=== PATIENT | male | born 1960 | race African-American/Black ===

== ENCOUNTER 2016-05-20 14:35 | Inpatient (IN) | payer OTHER ==
[2016-05-20 17:38] VITALS: BMI 17.1
--- NOTE | 2016-05-20 18:00 | HP ---
COWS - Scale Resting Pulse: 1= [place] 81-100 Sweatin= Chills/Flushing Restless Observation: 1= Difficult to Sit Still Pupil Size: 0= Normal to Room Light Bone or Joint Aches: 2= Severe Diffuse Aches Runny Nose/ Eye Tearin= Runny Nose/Eyes GI Upset > 30mins: 2= Nausea/Diarrhea Tremor Observation: 2= Slight Tremor Visible Yawning Observation: 0= None Anxiety or Irritability: 2=Irritable/Anxious Goose Flesh Skin: 3=Piloerection COWS Score: 16 CIWA Score - CIWA Score Nausea/Vomitin-Mild Nausea/No Vomiting Muscle Tremors: 4-Moderate,w/Arms Extend Anxiety: 4-Mod. Anxious/Guarded Agitation: 4-Moderately Restless Paroxysmal Sweats: 1-Minimal Palms Moist Orientation: 1-Uncertain about Date Tacttile Disturbances: 0-None Auditory Disturbances: 0-None Visual Disturbances: 0-None Headache: 0-None Present CIWA-Ar Total Score: 15 Admission [facility] - HPI Chief Complaint: WITHDRAWAL SX Allergies/Adverse Reactions: Allergies Allergy/AdvReac Type Severity Reaction Status Date / Time No Known Allergies Allergy Verified 02/08/16 16:53 History of Present Illness: 56 YEARS OLD MALE WITH LONG HISTORY OF ALCOHOL BENZO OPIATE NICOTINE DEPENDENCE , DENIES MEDICAL DENIES MENTAL ILLNESS IS ADMITTED TO DETOX Exam Limitations: No Limitations - Ebola screening Have you traveled outside of the country in the last 21 days: No Have you had contact with anyone from an Ebola affected area: No Have you been sick,other than usual withdrawal symptoms: No Do you have a fever: No - Review of Systems Constitutional: Chills, Loss of Appetite, Changes in sleep, Unexplained wgt Loss EENT: reports: Other (EYE GLASSES) Respiratory: reports: SOB at Rest Cardiac: reports: No Symptoms Reported GI: reports: Diarrhea, Nausea, Poor Appetite, Poor Fluid Intake, Abdominal cramping : reports: No Symptoms Reported Musculoskeletal: reports: Back Pain, Joint Pain, Muscle Pain, Neck Pain Integumentary: reports: No Symptoms Reported Neuro: reports: Tremors Endocrine: reports: No Symptoms Reported Hematology: reports: No Symptoms Reported Psychiatric: reports: Judgement Intact, Mood/Affect Appropiate Other Systems: Reviewed and Negative Patient History - Patient Medical History Hx Anemia: No Hx Asthma: No Hx Chronic Obstructive Pulmonary Disease (COPD): No Hx Cancer: No Hx Cardiac Disorders: No Hx Congestive Heart Failure: No Hx Hypertension: No Hx Hypercholesterolemia: No Hx Pacemaker: No HX Cerebrovascular Accident: No Hx Seizures: No Hx Dementia: No Hx Diabetes: No Hx Gastrointestinal Disorders: No Hx Liver Disease: No Hx Genitourinary Disorders: No Hx Sexually Transmitted Disorders: No Hx Renal Disease (ESRD): No Hx Thyroid Disease: No Hx Human Immunodeficiency Virus (HIV): No Hx Hepatitis C: No Hx Depression: No Hx Suicide Attempt: No Hx Bipolar Disorder: No Hx Schizophrenia: No - Patient Surgical History Past Surgical History: No Hx Neurologic Surgery: No Hx Cataract Extraction: No Hx Cardiac Surgery: No Hx Lung Surgery: No Hx Breast Surgery: No Hx Breast Biopsy: No Hx Abdominal Surgery: No Hx Appendectomy: No Hx Cholecystectomy: No Hx Genitourinary Surgery: No Hx Orthopedic Surgery: No - PPD History Previous Implant?: Yes Documented Results: Negative w/proof Implanted On Prior R Admission?: Yes Date: 12/24/15 Results: 0 mm PPD to be Administered?: No - Smoking Cessation Smoking history: Current every day smoker Have you smoked in the past 12 months: Yes Aproximately how many cigarettes per day: 10 Cigars Per Day: 0 Hx Chewing Tobacco Use: No Initiated information on smoking cessation: Yes 'Breaking Loose' booklet given: 05/20/16 - Substance & Tx. History Hx Alcohol Use: Yes Hx Substance Use: Yes Substance Use Type: Alcohol, Heroin, Opiates, Tranquilizers - Substances Abused Alcohol Route: Oral Frequency: Daily Amount used: 1/2 [place] Age of first use: 19 Date of Last Use: 05/19/16 Heroin Route: Inhalation Frequency: Daily Amount used: 15 BAGS Age of first use: 29 Date of Last Use: 05/20/16 Benzodiazepine (Klonopin) Route: Oral Frequency: Daily Amount used: 8 MG Age of first use: 54 Date of Last Use: 05/20/16 Family Disease History - Family Disease History Family Disease History: Heart Disease: Mother Admission Physical Exam [facility] - Vital Signs Vital Signs: Vital Signs - 24 hr 05/20/16 17:36 Temperature 96.5 F L Pulse Rate 81 Respiratory 20 Rate Blood Pressure 114/90 - Physical General Appearance: Yes: Appropriately Dressed, Mild Distress, Thin, Tremorous, Irritable, Sweating, Anxious HEENTM: Yes: Hearing grossly Normal, Normal ENT Inspection, Normocephalic, Normal Voice Respiratory: Yes: Chest Non-Tender, Lungs Clear, Normal Breath Sounds, No Respiratory Distress, No Accessory Muscle Use Neck: Yes: Supple, Trachea in good position Breast: Yes: Breasts Symetrical Cardiology: Yes: Regular Rhythm, Regular Rate, S1, S2 Abdominal: Yes: Non Tender, Soft Genitourinary: Yes: Within Normal Limits Back: Yes: Normal Inspection Musculoskeletal: Yes: full range of Motion, Gait Steady Extremities: Yes: Within Normal Limits Neurological: Yes: Alert, Motor Strength 5/5, Normal Mood/Affect, Normal Response Integumentary: Yes: Within Normal Limits Lymphatic: Yes: Within Normal Limits - Diagnostic (1) Alcohol dependence with uncomplicated withdrawal Current Visit: Yes Status: Acute (2) Opioid dependence with withdrawal Current Visit: Yes Status: Acute (3) Sedative, hypnotic or anxiolytic dependence with withdrawal, uncomplicated Current Visit: Yes Status: Acute (4) Nicotine dependence Current Visit: Yes Status: Acute Qualifiers: Nicotine product type: cigarettes Substance use status: in withdrawal Qualified Code(s): F17.213 - Nicotine dependence, cigarettes, with withdrawal (5) Weight loss Current Visit: Yes Status: Acute (6) GERD (gastroesophageal reflux disease) Current Visit: Yes Status: Acute Qualifiers: Esophagitis presence: without esophagitis Qualified Code(s): K21.9 - Gastro-esophageal reflux disease without esophagitis Cleared for Admission S - Detox or Rehab [facility] Level of Care: Medically Managed Detox Regimen/Protocol: Methadone/Valium S Breath Alcohol Content Breath Alcohol Content: 0 Urine Drug Screen - Results Drug Screen Negative: No Urine Drug Screen Results: THC-Marijuana, OPI-Opiates, AMP-Amphetamines, MET- Methamphetamine, BZO-Benzodiazepines, OXY-Oxycodone
[2016-05-20] MEDS ORDERED: MAG HYDROX/AL HYDROX/SIMETH 30 ML UNIT-DOSE CUP PO PRN (18:10)
[2016-05-20] MEDS ORDERED: METHADONE HCL 10 MG TABLET (FOR DETOX USE ONLY) PO ONE ×2 (18:10→23:00)
[2016-05-20] MEDS ORDERED: MENTHOL/PHENOL 1 EACH UD MM PRN (18:10)
[2016-05-20] MEDS ORDERED: diazePAM 5 MG TABLET PO ONE (18:10)
[2016-05-20] MEDS ORDERED: ACETAMINOPHEN 325 MG TABLET (FP) PO PRN (18:10)
[2016-05-20] MEDS ORDERED: LOPERAMIDE HCL 2 MG CAPSULE PO PRN (18:10)
[2016-05-20] MEDS ORDERED: MAGNESIUM CITRATE 300 ML BOTTLE PO PRN (18:10)
[2016-05-20] MEDS ORDERED: guaiFENesin/D-METHORPHAN HB 10 ML UNIT-DOSE CUPS PO PRN (18:10)
[2016-05-20] MEDS ORDERED: MAGNESIUM HYDROX 2400MG/30ML ORAL SUSPENSION 30 ML CUP PO PRN (18:10)
[2016-05-20] MEDS ORDERED: NICOTINE POLACRILEX 2 MG GUM BUC PRN (18:10)
[2016-05-20] MEDS ORDERED: P-EPHED 60MG/TRIPROLIDI 2.5MG TABLET PO PRN (18:10)
[2016-05-20] MEDS ORDERED: IBUPROFEN 400 MG TABLET (FP) PO PRN (18:10)
[2016-05-20] MEDS ORDERED: METHADONE HCL 10 MG TABLET (FOR DETOX USE ONLY) ONE (21:01)
[2016-05-20] MEDS: RANITIDINE HCL 150 MG TABLET (FP) PO SCH (21:06)
[2016-05-20] MEDS: THIAMINE HCL 100 MG TABLET (FP) PO SCH (21:06)
[2016-05-20] MEDS: diazePAM 5 MG TABLET PO SCH (22:45)
[2016-05-20 23:03] LABS: URINE APPEARANCE CLEAR; URINE BILIRUBIN NEGATIVE (NEGATIVE); URINE BLOOD NEGATIVE (NEGATIVE); URINE COLOR YELLOW; URINE GLUCOSE (UA) NEGATIVE (NEGATIVE); URINE KETONE TRACE (NEGATIVE); URINE LEUK ESTERASE NEGATIVE (NEGATIVE); URINE NITRITE NEGATIVE (NEGATIVE); URINE PROTEIN NEGATIVE (NEGATIVE); URINE UROBILINOGEN NEGATIVE E.U./dl (0.2-1.0)
[2016-05-21] MEDS: diazePAM 5 MG TABLET PO SCH ×3 (06:00→22:13)
[2016-05-21] MEDS ORDERED: METHADONE HCL 10 MG TABLET (FOR DETOX USE ONLY) PO SCH (10:00)
[2016-05-21] MEDS: PRENATAL VITAMINS W/ FOLIC ACID TABLET (FP) PO SCH (10:08)
[2016-05-21] MEDS: RANITIDINE HCL 150 MG TABLET (FP) PO SCH ×2 (10:08→22:13)
[2016-05-21] MEDS: NICOTINE 14 MG/24 HOURS TOPICAL PATCH TD SCH (10:09)
[2016-05-21 10:53] LABS: MCH 26.3 pg (25.7-33.7); MCHC 32.8 g/dl (32.0-35.9); MEAN CELL VOLUME 80.3 fl (80-96); MEAN PLT VOLUME 8.7 fl (7.5-11.1); PLATELET COUNT 169 K/MM3 (134-434); RDW 14.2 % (11.9-15.9); WHITE BLOOD COUNT 5.9 K/mm3 (4.0-10.0)
[2016-05-21 11:14] LABS: ALBUMIN 3.3 g/dl (3.4-5.0); ALK PHOS 103 U/L (45-117); ANION GAP 10 (8-16); BILIRUBIN,TOTAL 0.4 mg/dL (0.2-1.0); CALCIUM 8.3 mg/dL (8.5-10.1); CO2 27 mmol/L (21-32); CREATININE 0.9 mg/dL (0.7-1.3); GLUCOSE,RANDOM 84 mg/dL (74-106); SGOT/AST 21 U/L (15-37); SGPT/ALT 18 U/L (12-78); TOT PROT 6.3 g/dl (6.4-8.2)
--- NOTE | 2016-05-21 11:19 | PN ---
S CIWA - CIWA Score Nausea/Vomitin Muscle Tremors: 4-Moderate,w/Arms Extend Anxiety: 4-Mod. Anxious/Guarded Agitation: 4-Moderately Restless Paroxysmal Sweats: 3 Orientation: 0-Oriented Tacttile Disturbances: 1-Very Mild Itch/Numbness Auditory Disturbances: 0-None Visual Disturbances: 0-None Headache: 0-None Present CIWA-Ar Total Score: 19 BHS COWS - Scale Resting Pulse: 1= [place] 81-100 Sweatin= Chills/Flushing Restless Observation: 1= Difficult to Sit Still Pupil Size: 1= Pupils >than Normal Bone or Joint Aches: 1= Mild Discomfort Runny Nose/ Eye Tearin= Nasal Congestion GI Upset > 30mins: 2= Nausea/Diarrhea Tremor Observation of Outstretched Hands: 2= Slight Tremor Visible Yawning Observation: 1= 1-2x During Session Anxiety or Irritability: 2=Irritable/Anxious Goose Flesh Skin: 3=Piloerection COWS Score: 16 S Progress Note (SOAP) Subjective: nasuea, sweats, interrupted sleep , anxiety, tremors Objective: 05/21/16 11:19 Laboratory Tests 05/20/16 05/21/16 05/21/16 22:01 08:00 09:30 WBC 5.9 RBC 4.84 Hgb 12.8 Hct 38.9 MCV 80.3 MCHC 32.8 RDW 14.2 Plt Count 169 MPV 8.7 Sodium 140 Potassium 3.9 Chloride 103 Urine Color Yellow Urine Appearance Clear Urine pH 5.0 D Ur Specific [place] 1.026 Urine Protein Negative Urine Glucose (UA) Negative Urine Ketones Trace H Urine Blood Negative Urine Nitrite Negative Urine Bilirubin Negative Urine Urobilinogen Negative Ur Leukocyte Esterase Negative labs still pending Assessment: 05/21/16 11:19 withdrawal sx Plan: cont detox
[2016-05-21] MEDS: diazePAM 5 MG TABLET PO PRN (17:21)
--- NOTE | 2016-05-21 18:37 | EKG ---
Test Reason : Blood Pressure : / mmHG Vent. Rate : 062 BPM Atrial Rate : 062 BPM P-R Int : 176 ms QRS Dur : 124 ms QT Int : 416 ms P-R-T Axes : 074 066 054 degrees QTc Int : 422 ms NORMAL SINUS RHYTHM POSSIBLE LEFT ATRIAL ENLARGEMENT LEFT VENTRICULAR HYPERTROPHY WITH QRS WIDENING ABNORMAL ECG NO PREVIOUS ECGS AVAILABLE Confirmed by MATEUSZ ALBRIGHT MD ([id number]) on 05/21/2016 6:37:11 PM Referred By: Confirmed By:MATEUSZ ALBRIGHT MD
[2016-05-21] MEDS: THIAMINE HCL 100 MG TABLET (FP) PO SCH (22:13)
[2016-05-21] MEDS: diphenhydrAMINE HCL 50 MG CAPSULE PO PRN (22:14)
[2016-05-22] MEDS: NICOTINE 14 MG/24 HOURS TOPICAL PATCH TD SCH (10:07)
[2016-05-22] MEDS: RANITIDINE HCL 150 MG TABLET (FP) PO SCH ×2 (10:07→22:05)
[2016-05-22] MEDS: PRENATAL VITAMINS W/ FOLIC ACID TABLET (FP) PO SCH (10:07)
[2016-05-22] MEDS: diazePAM 5 MG TABLET PO SCH ×2 (10:07→22:05)
[2016-05-22] MEDS: METHADONE HCL 5 MG TABLET (FOR DETOX USE ONLY) PO SCH (10:07)
--- NOTE | 2016-05-22 12:52 | PN ---
[facility] CIWA - CIWA Score Nausea/Vomitin Muscle Tremors: 3 Anxiety: 4-Mod. Anxious/Guarded Agitation: 4-Moderately Restless Paroxysmal Sweats: No Perspiration Orientation: 0-Oriented Tacttile Disturbances: 1-Very Mild Itch/Numbness Auditory Disturbances: 0-None Visual Disturbances: 0-None Headache: 2-Mild CIWA-Ar Total Score: 17 BHS COWS - Scale Resting Pulse: 0= [place] 80 or Below Sweatin= Chills/Flushing Restless Observation: 3= Extraneous Movement Pupil Size: 0= Normal to Room Light Bone or Joint Aches: 1= Mild Discomfort Runny Nose/ Eye Tearin= Runny Nose/Eyes GI Upset > 30mins: 2= Nausea/Diarrhea Tremor Observation of Outstretched Hands: 2= Slight Tremor Visible Yawning Observation: 0= None Anxiety or Irritability: 2=Irritable/Anxious Goose Flesh Skin: 0=Smooth Skin COWS Score: 13 S Progress Note (SOAP) Subjective: Tremor, sweating, nausea, restless, interrupted sleep Objective: 05/22/16 12:50 Last Vital Signs Temp Pulse Resp BP Pulse Ox 95.5 F L 60 18 127/91 05/22/16 09:24 05/22/16 09:24 05/22/16 09:24 05/22/16 09:24 Laboratory Tests 05/20/16 05/21/16 05/21/16 22:01 08:00 08:00 WBC RBC Hgb Hct MCV MCHC RDW Plt Count MPV Sodium 140 Potassium 3.9 Chloride 103 Carbon Dioxide 27 Anion Gap 10 BUN 12 Creatinine 0.9 Creat Clearance w eGFR > 60 Random Glucose 84 D Calcium 8.3 L Total Bilirubin 0.4 D AST 21 D ALT 18 Alkaline Phosphatase 103 Total Protein 6.3 L Albumin 3.3 L Urine Color Yellow Urine Appearance Clear Urine pH 5.0 D Ur Specific [place] 1.026 Urine Protein Negative Urine Glucose (UA) Negative Urine Ketones Trace H Urine Blood Negative Urine Nitrite Negative Urine Bilirubin Negative Urine Urobilinogen Negative Ur Leukocyte Esterase Negative RPR Titer Nonreactive 05/21/16 09:30 WBC 5.9 RBC 4.84 Hgb 12.8 Hct 38.9 MCV 80.3 MCHC 32.8 RDW 14.2 Plt Count 169 MPV 8.7 Sodium Potassium Chloride Carbon Dioxide Anion Gap BUN Creatinine Creat Clearance w eGFR Random Glucose Calcium Total Bilirubin AST ALT Alkaline Phosphatase Total Protein Albumin Urine Color Urine Appearance Urine pH Ur Specific [place] Urine Protein Urine Glucose (UA) Urine Ketones Urine Blood Urine Nitrite Urine Bilirubin Urine Urobilinogen Ur Leukocyte Esterase RPR Titer Labs noted Assessment: 05/22/16 12:51 Withdrawal symptoms Plan: Continue detox Ambien 10mg PO qhs prn ordered for sleep (patient stated benadryl doesn't work)
[2016-05-22] MEDS: diazePAM 5 MG TABLET PO PRN (17:12)
[2016-05-22] MEDS: diphenhydrAMINE HCL 50 MG CAPSULE PO PRN (22:04)
[2016-05-22] MEDS: THIAMINE HCL 100 MG TABLET (FP) PO SCH (22:05)
[2016-05-23] MEDS: METHADONE HCL 5 MG TABLET (FOR DETOX USE ONLY) PO SCH (10:04)
[2016-05-23] MEDS: diazePAM 5 MG TABLET PO SCH ×2 (10:04→22:05)
[2016-05-23] MEDS: PRENATAL VITAMINS W/ FOLIC ACID TABLET (FP) PO SCH (10:04)
[2016-05-23] MEDS: NICOTINE 14 MG/24 HOURS TOPICAL PATCH TD SCH (10:04)
[2016-05-23] MEDS: RANITIDINE HCL 150 MG TABLET (FP) PO SCH ×2 (12:11→22:06)
[2016-05-23] MEDS: diazePAM 5 MG TABLET PO PRN (12:14)
--- NOTE | 2016-05-23 12:48 | PN ---
S Progress Note (SOAP) Subjective: Tremors, Interrupted sleep, Lower Back Pain. Objective: PT. A & O X 3. 05/23/16 12:46 Vital Signs Temperature 96.7 F L 05/23/16 10:01 Pulse Rate 53 L 05/23/16 10:01 Respiratory Rate 18 05/23/16 10:01 Blood Pressure 126/90 05/23/16 10:01 O2 Sat by Pulse Oximetry (%) Laboratory Last Values WBC 5.9 K/mm3 (4.0-10.0) 05/21/16 09:30 RBC 4.84 M/mm3 (4.00-5.60) 05/21/16 09:30 Hgb 12.8 GM/dL (11.7-16.9) 05/21/16 09:30 Hct 38.9 % (35.4-49) 05/21/16 09:30 MCV 80.3 fl (80-96) 05/21/16 09:30 MCHC 32.8 g/dl (32.0-35.9) 05/21/16 09:30 RDW 14.2 % (11.9-15.9) 05/21/16 09:30 Plt Count 169 K/MM3 (134-434) 05/21/16 09:30 MPV 8.7 fl (7.5-11.1) 05/21/16 09:30 Sodium 140 mmol/L (136-145) 05/21/16 08:00 Potassium 3.9 mmol/L (3.5-5.1) 05/21/16 08:00 Chloride 103 mmol/L (98-107) 05/21/16 08:00 Carbon Dioxide 27 mmol/L (21-32) 05/21/16 08:00 Anion Gap 10 (8-16) 05/21/16 08:00 BUN 12 mg/dL (7-18) 05/21/16 08:00 Creatinine 0.9 mg/dL (0.7-1.3) 05/21/16 08:00 Creat Clearance w eGFR > 60 (>60) 05/21/16 08:00 Random Glucose 84 mg/dL (74-106) D 05/21/16 08:00 Calcium 8.3 mg/dL (8.5-10.1) L 05/21/16 08:00 Total Bilirubin 0.4 mg/dL (0.2-1.0) D 05/21/16 08:00 AST 21 U/L (15-37) D 05/21/16 08:00 ALT 18 U/L (12-78) 05/21/16 08:00 Alkaline Phosphatase 103 U/L (45-117) 05/21/16 08:00 Total Protein 6.3 g/dl (6.4-8.2) L 05/21/16 08:00 Albumin 3.3 g/dl (3.4-5.0) L 05/21/16 08:00 Urine Color Yellow 05/20/16 22:01 Urine Appearance Clear 05/20/16 22:01 Urine pH 5.0 (5.0-8.0) D 05/20/16 22:01 Ur Specific [place] 1.026 (1.001-1.035) 05/20/16 22:01 Urine Protein Negative (NEGATIVE) 05/20/16 22:01 Urine Glucose (UA) Negative (NEGATIVE) 05/20/16 22:01 Urine Ketones Trace (NEGATIVE) H 05/20/16 22:01 Urine Blood Negative (NEGATIVE) 05/20/16 22:01 Urine Nitrite Negative (NEGATIVE) 05/20/16 22:01 Urine Bilirubin Negative (NEGATIVE) 05/20/16 22:01 Urine Urobilinogen Negative E.U./dl (0.2-1.0) 05/20/16 22:01 Ur Leukocyte Esterase Negative (NEGATIVE) 05/20/16 22:01 RPR Titer Nonreactive (NONREACTIVE) 05/21/16 08:00 LABS NOTED. Assessment: 05/23/16 12:47 WITHDRAWAL SYMPTOMS. Plan: CONTINUE DETOX.
[2016-05-23] MEDS: ZOLPIDEM TARTRATE 5 MG TABLET PO PRN (22:06)
[2016-05-23] MEDS: THIAMINE HCL 100 MG TABLET (FP) PO SCH (22:06)
[2016-05-24] MEDS ORDERED: diazePAM 5 MG TABLET PO SCH (10:00)
[2016-05-24] MEDS ORDERED: METHADONE HCL 10 MG TABLET (FOR DETOX USE ONLY) PO SCH (10:00)
[2016-05-24] MEDS: NICOTINE 14 MG/24 HOURS TOPICAL PATCH TD SCH (10:05)
[2016-05-24] MEDS: RANITIDINE HCL 150 MG TABLET (FP) PO SCH ×2 (10:05→22:05)
[2016-05-24] MEDS: PRENATAL VITAMINS W/ FOLIC ACID TABLET (FP) PO SCH (10:05)
--- NOTE | 2016-05-24 11:12 | PN ---
BHS Progress Note (SOAP) Subjective: SWEATING,INTERRUPTED SLEEP,RESTLESS Objective: 05/24/16 11:11 Vital Signs - 8 hr 05/24/16 05/24/16 06:32 09:46 Temperature 96.6 F L 96.3 F L Pulse Rate 60 68 Respiratory 18 18 Rate Blood Pressure 132/87 120/89 Laboratory Tests 05/20/16 05/21/16 05/21/16 22:01 08:00 08:00 WBC RBC Hgb Hct MCV MCHC RDW Plt Count MPV Sodium 140 Potassium 3.9 Chloride 103 Carbon Dioxide 27 Anion Gap 10 BUN 12 Creatinine 0.9 Creat Clearance w eGFR > 60 Random Glucose 84 D Calcium 8.3 L Total Bilirubin 0.4 D AST 21 D ALT 18 Alkaline Phosphatase 103 Total Protein 6.3 L Albumin 3.3 L Urine Color Yellow Urine Appearance Clear Urine pH 5.0 D Ur Specific [place] 1.026 Urine Protein Negative Urine Glucose (UA) Negative Urine Ketones Trace H Urine Blood Negative Urine Nitrite Negative Urine Bilirubin Negative Urine Urobilinogen Negative Ur Leukocyte Esterase Negative RPR Titer Nonreactive 05/21/16 09:30 WBC 5.9 RBC 4.84 Hgb 12.8 Hct 38.9 MCV 80.3 MCHC 32.8 RDW 14.2 Plt Count 169 MPV 8.7 Sodium Potassium Chloride Carbon Dioxide Anion Gap BUN Creatinine Creat Clearance w eGFR Random Glucose Calcium Total Bilirubin AST ALT Alkaline Phosphatase Total Protein Albumin Urine Color Urine Appearance Urine pH Ur Specific [place] Urine Protein Urine Glucose (UA) Urine Ketones Urine Blood Urine Nitrite Urine Bilirubin Urine Urobilinogen Ur Leukocyte Esterase RPR Titer LABS NOTED Assessment: 05/24/16 11:12 WITHDRAWAL SX. Plan: CONTINUE DETOX
[2016-05-24] MEDS: THIAMINE HCL 100 MG TABLET (FP) PO SCH (22:04)
[2016-05-24] MEDS: ZOLPIDEM TARTRATE 5 MG TABLET PO PRN (22:04)
[2016-05-25] MEDS ORDERED: METHADONE HCL 5 MG TABLET (FOR DETOX USE ONLY) PO SCH (06:00)
[2016-05-25 06:26] VITALS: BP 132/87; PULSE 50; TEMP 96.6
--- NOTE | 2016-05-25 18:12 | DS ---
[facility] Detox Discharge Summary Admission Date: 05/20/16 Discharge Date: 05/25/16 - History Present History: Alcohol Dependence, Cannabis Dependence, Opioid Dependence, Sedative Dependence Pertinent Past History: GERD VARICOSE VEINS OF THE LEGS - Physical Exam Results Vital Signs: Vital Signs Temperature 96.6 F L 05/25/16 06:25 Pulse Rate 50 L 05/25/16 06:25 Respiratory Rate 18 05/25/16 06:25 Blood Pressure 132/87 05/25/16 06:25 O2 Sat by Pulse Oximetry (%) Pertinent Admission Physical Exam Findings: WITHDRAWAL SX. Laboratory Tests 05/20/16 05/21/16 05/21/16 22:01 08:00 08:00 WBC RBC Hgb Hct MCV MCHC RDW Plt Count MPV Sodium 140 Potassium 3.9 Chloride 103 Carbon Dioxide 27 Anion Gap 10 BUN 12 Creatinine 0.9 Creat Clearance w eGFR > 60 Random Glucose 84 D Calcium 8.3 L Total Bilirubin 0.4 D AST 21 D ALT 18 Alkaline Phosphatase 103 Total Protein 6.3 L Albumin 3.3 L Urine Color Yellow Urine Appearance Clear Urine pH 5.0 D Ur Specific [place] 1.026 Urine Protein Negative Urine Glucose (UA) Negative Urine Ketones Trace H Urine Blood Negative Urine Nitrite Negative Urine Bilirubin Negative Urine Urobilinogen Negative Ur Leukocyte Esterase Negative RPR Titer Nonreactive 05/21/16 09:30 WBC 5.9 RBC 4.84 Hgb 12.8 Hct 38.9 MCV 80.3 MCHC 32.8 RDW 14.2 Plt Count 169 MPV 8.7 Sodium Potassium Chloride Carbon Dioxide Anion Gap BUN Creatinine Creat Clearance w eGFR Random Glucose Calcium Total Bilirubin AST ALT Alkaline Phosphatase Total Protein Albumin Urine Color Urine Appearance Urine pH Ur Specific [place] Urine Protein Urine Glucose (UA) Urine Ketones Urine Blood Urine Nitrite Urine Bilirubin Urine Urobilinogen Ur Leukocyte Esterase RPR Titer LABS NOTED - Treatment Hospital Course: Detox Protocol Followed, Detoxed Safely, Responded well, Discharged Condition Good, Rehab Referral Accepted - Medication Discharge Medications: Ambulatory Orders NK [No Known Home Medication] 12/22/15 - Diagnosis (1) Alcohol dependence with uncomplicated withdrawal Status: Acute (2) Cannabis dependence, uncomplicated Status: Acute (3) GERD (gastroesophageal reflux disease) Status: Acute Qualifiers: Esophagitis presence: without esophagitis Qualified Code(s): K21.9 - Gastro-esophageal reflux disease without esophagitis (4) Nicotine dependence Status: Acute Qualifiers: Nicotine product type: cigarettes Substance use status: in withdrawal Qualified Code(s): F17.213 - Nicotine dependence, cigarettes, with withdrawal (5) Opioid dependence with withdrawal Status: Acute (6) Sedative, hypnotic or anxiolytic dependence with withdrawal, uncomplicated Status: Acute - AMA Did Patient Leave Against Medical Advice: No
== END 2016-05-25 08:58 | disposition home or self-care (01) | DRG 773 ==
LOC: YASAS 14:35 → Y3N 19:27
PROVIDERS: ADMIT Internal Medicine; ATTEND Internal Medicine
PROC: HZ2ZZZZ Detoxification Services for Substance Abuse Treatment (ICD-10-PCS; principal; 2016-05-25)
DX: F11.23 Opioid dependence with withdrawal (principal); F13.230 Sedative, hypnotic or anxiolytic dependence with withdrawal, uncomplicated; F10.230 Alcohol dependence with withdrawal, uncomplicated; F17.213 Nicotine dependence, cigarettes, with withdrawal; F12.20 Cannabis dependence, uncomplicated; K21.9 Gastro-esophageal reflux disease without esophagitis; R63.4 Abnormal weight loss; Z68.1 Body mass index [BMI] 19.9 or less, adult
CPT/HCPCS: 36415; 80053; 81003; 85027; 86593; 93005; 93010

== ENCOUNTER 2018-01-29 11:03 | Inpatient (IN) | payer OTHER ==
[2018-01-29 11:55] VITALS: BMI 16.6
--- NOTE | 2018-01-29 15:46 | HP ---
COWS - Scale Resting Pulse: 0= [place] 80 or Below Sweatin=Flushed/Facial Moisture Restless Observation: 1= Difficult to Sit Still Pupil Size: 0= Normal to Room Light Bone or Joint Aches: 1= Mild Discomfort Runny Nose/ Eye Tearin= Runny Nose/Eyes GI Upset > 30mins: 2= Nausea/Diarrhea Tremor Observation: 1= Tremor [place], Not Seen Yawning Observation: 1= 1-2x During Session Anxiety or Irritability: 2=Irritable/Anxious Goose Flesh Skin: 0=Smooth Skin COWS Score: 12 CIWA Score - CIWA Score Nausea/Vomitin Muscle Tremors: 2 Anxiety: 3 Agitation: 2 Paroxysmal Sweats: 3 Orientation: 0-Oriented Tacttile Disturbances: 0-None Auditory Disturbances: 0-None Visual Disturbances: 0-None Headache: 0-None Present CIWA-Ar Total Score: 13 Admission ROS S - HPI Chief Complaint: " I want be sober for my birthday" alcohol, opioid and benzodiazepine withdrawal symptoms Allergies/Adverse Reactions: Allergies Allergy/AdvReac Type Severity Reaction Status Date / Time No Known Allergies Allergy Verified 01/29/18 14:10 History of Present Illness: 57 yo male with hx of nicotine, cocaine, heroin (nasal), alcohol, xanax, and marijuana dependence is here seeking detox. Last detox [facility] detox 05/20/16 -. PMHX: weight loss and insomnia. Denies hx or seizures or blackouts. Denies suicidal / homicidal ideation. Longest period of sobriety four years during 2002 -2006. Denies maintenance tx with buprinorphine or MMTP. Exam Limitations: No Limitations - Ebola screening Have you traveled outside of the country in the last 21 days: No Have you had contact with anyone from an Ebola affected area: No Have you been sick,other than usual withdrawal symptoms: No Do you have a fever: No - Review of Systems Constitutional: Loss of Appetite, Changes in sleep, Unintentional Wgt. Loss (20 + lbs in the past year) EENT: reports: No Symptoms Reported Respiratory: reports: No Symptoms reported Cardiac: reports: No Symptoms Reported GI: reports: Nausea, Poor Appetite, Poor Fluid Intake : reports: No Symptoms Reported Musculoskeletal: reports: Back Pain (low back) Neuro: reports: Weakness Endocrine: reports: Increased Thirst Hematology: reports: No Symptoms Reported Psychiatric: reports: Orientated x3, Anxious Other Systems: Reviewed and Negative Patient History - Patient Medical History Hx Anemia: No Hx Asthma: No Hx Chronic Obstructive Pulmonary Disease (COPD): No Hx Cancer: No Hx Cardiac Disorders: No Hx Congestive Heart Failure: No Hx Hypertension: No Hx Hypercholesterolemia: No Hx Pacemaker: No HX Cerebrovascular Accident: No Hx Seizures: No Hx Dementia: No Hx Diabetes: No Hx Gastrointestinal Disorders: No Hx Liver Disease: No Hx Genitourinary Disorders: No Hx Sexually Transmitted Disorders: No Hx Renal Disease (ESRD): No Hx Thyroid Disease: No Hx Human Immunodeficiency Virus (HIV): No Hx Hepatitis C: No Hx Depression: No Hx Suicide Attempt: No Hx Bipolar Disorder: No Hx Schizophrenia: No - Patient Surgical History Past Surgical History: No Hx Neurologic Surgery: No Hx Cataract Extraction: No Hx Cardiac Surgery: No Hx Lung Surgery: No Hx Breast Surgery: No Hx Breast Biopsy: No Hx Abdominal Surgery: No Hx Appendectomy: No Hx Cholecystectomy: No Hx Genitourinary Surgery: No Hx Section: No Hx Orthopedic Surgery: No Anesthesia Reaction: No - PPD History Previous Implant?: Yes Documented Results: Negative w/proof Implanted On Prior [facility] Admission?: Yes Date: 12/24/15 Results: 0 mm PPD to be Administered?: Yes - Smoking Cessation Smoking history: Current every day smoker Have you smoked in the past 12 months: Yes Aproximately how many cigarettes per day: 10 Cigars Per Day: 0 Hx Chewing Tobacco Use: No Initiated information on smoking cessation: Yes 'Breaking Loose' booklet given: 01/29/18 - Substance & Tx. History Hx Alcohol Use: Yes Hx Substance Use: Yes Substance Use Type: Cocaine, Heroin, Marijuana Hx Substance Use Treatment: Yes ([facility] detox 05/20/16 -05/25/16) - Substances Abused Heroin Route: Inhalation Frequency: Daily Amount used: 13 bags Age of first use: 26 Date of Last Use: 01/28/18 Alcohol-vodka Route: Oral Frequency: 3-6 times per week Amount used: 1 pt. Age of first use: 19 Date of Last Use: 01/28/18 Xanax Route: Oral Frequency: Daily Amount used: 4 mg. Age of first use: 54 Date of Last Use: 01/28/18 Family Disease History - Family Disease History Family Disease History: Heart Disease: Mother Admission Physical Exam [facility] - Vital Signs Vital Signs: Vital Signs - 24 hr 01/29/18 11:52 Temperature 98.2 F Pulse Rate 72 Respiratory 19 Rate Blood Pressure 140/92 - Physical General Appearance: Yes: Appropriately Dressed, Thin, Sweating, Anxious HEENTM: Yes: EOMI, Hearing grossly Normal, Normal ENT Inspection, Normocephalic , Normal Voice, TONYA, Pharynx Normal, Tm's normal, Rhinorrhea Respiratory: Yes: Chest Non-Tender, Lungs Clear, Normal Breath Sounds, No Respiratory Distress, No Accessory Muscle Use Neck: Yes: Within Normal Limits Breast: Yes: Breast Exam Deferred Cardiology: Yes: Regular Rhythm, Regular Rate Abdominal: Yes: Normal Bowel Sounds, Non Tender, Flat, Soft Genitourinary: Yes: Within Normal Limits Back: Yes: Normal Inspection Musculoskeletal: Yes: full range of Motion, Gait Steady, Pelvis Stable, Back pain Extremities: Yes: Normal Capillary Refill, Normal Inspection, Normal Range of Motion, Non-Tender Neurological: Yes: drug and alcohol counsellor II-XII NML intact, Fully Oriented, Alert, Motor Strength 5/5, Depressed Affect Integumentary: Yes: Normal Color, Warm, Diaphoresis Lymphatic: Yes: Within Normal Limits - Diagnostic (1) Alcohol dependence with uncomplicated withdrawal Current Visit: Yes Status: Acute (2) Cannabis dependence, uncomplicated Current Visit: Yes Status: Acute (3) GERD (gastroesophageal reflux disease) Current Visit: Yes Status: Chronic Qualifiers: Esophagitis presence: without esophagitis Qualified Code(s): K21.9 - Gastro -esophageal reflux disease without esophagitis (4) Nicotine dependence Current Visit: Yes Status: Acute Qualifiers: Nicotine product type: cigarettes Substance use status: in withdrawal Qualified Code(s): F17.213 - Nicotine dependence, cigarettes, with withdrawal (5) Opioid dependence with withdrawal Current Visit: Yes Status: Acute (6) Sedative, hypnotic or anxiolytic dependence with withdrawal, uncomplicated Current Visit: No Status: Acute (7) Weight loss Current Visit: Yes Status: Acute Cleared for Admission [facility] - Detox or Rehab [facility] Level of Care: Medically Managed Detox Regimen/Protocol: Methadone/Valium [facility] Breath Alcohol Content Breath Alcohol Content: 0 Urine Drug Screen - Results Drug Screen Negative: No Urine Drug Screen Results: THC-Marijuana, SAVANAH-Cocaine, OPI-Opiates, BZO- Benzodiazepines, MTD-Methadone, OXY-Oxycodone, FEN-Fentanyl
[2018-01-29] MEDS ORDERED: ACETAMINOPHEN 325 MG TABLET (FP) PO PRN (15:54)
[2018-01-29] MEDS ORDERED: IBUPROFEN 400 MG TABLET (FP) PO PRN (15:54)
[2018-01-29] MEDS ORDERED: guaiFENesin/D-METHORPHAN HB 10 ML UNIT-DOSE CUPS PO PRN (15:54)
[2018-01-29] MEDS ORDERED: P-EPHED 60MG/TRIPROLIDI 2.5MG TABLET PO PRN (15:54)
[2018-01-29] MEDS ORDERED: LOPERAMIDE HCL 2 MG CAPSULE PO PRN (15:54)
[2018-01-29] MEDS ORDERED: MAG HYDROX/AL HYDROX/SIMETH 30 ML UNIT-DOSE CUP PO PRN (15:54)
[2018-01-29] MEDS ORDERED: MAGNESIUM CITRATE 300 ML BOTTLE PO PRN (15:54)
[2018-01-29] MEDS ORDERED: MENTHOL/PHENOL 1 EACH UD MM PRN (15:54)
[2018-01-29] MEDS ORDERED: MAGNESIUM HYDROX 2400MG/30ML ORAL SUSPENSION 30 ML CUP PO PRN (15:54)
[2018-01-29] MEDS ORDERED: METHADONE HCL 10 MG TABLET (FOR DETOX USE ONLY) PO ONE ×2 (16:45→23:00)
[2018-01-29] MEDS ORDERED: diazePAM 5 MG TABLET PO ONE (16:45)
[2018-01-29 22:11] LABS: URINE APPEARANCE CLEAR; URINE BILIRUBIN NEGATIVE (<2.0 mg/dL); URINE COLOR DKYELLOW; URINE GLUCOSE (UA) NEGATIVE (NEGATIVE); URINE KETONE NEGATIVE (NEGATIVE); URINE LEUK ESTERASE NEGATIVE (NEGATIVE); URINE NITRITE NEGATIVE (NEGATIVE); URINE PROTEIN NEGATIVE (NEGATIVE); URINE UROBILINOGEN 4.0 E.U/dl mg/dL (0.2-1.0)
[2018-01-29] MEDS: THIAMINE HCL 100 MG TABLET (FP) PO SCH (22:31)
[2018-01-29] MEDS: diazePAM 5 MG TABLET PO SCH (22:32)
[2018-01-29] MEDS: NICOTINE POLACRILEX 2 MG GUM BC PRN (22:32)
[2018-01-29 23:04] LABS: EPI CELLS RARE /HPF (FEW); URINE MUCUS RARE
[2018-01-30] MEDS: diazePAM 5 MG TABLET PO SCH ×3 (06:02→22:25)
--- NOTE | 2018-01-30 09:00 | CONSULT ---
[facility] Psychiatric Consult - Data Date of interview: 01/30/18 Admission source: [facility] Identifying data: Patient is a 56 year old single male, father of two, unemployed, domiciled, and is supported by public assistance. This is one of multiple admissions for patient. Patient admitted to for alcohol, opioid, and benzodizaepine dependence. Substance Abuse History: Smoking Cessation. Smoking history: Current every day smoker. Have you smoked in the past 12 months: Yes. Aproximately how many cigarettes per day: 10. Cigars Per Day: 0. Hx Chewing Tobacco Use: No. Initiated information on smoking cessation: Yes. 'Breaking Loose' booklet given : 01/29/18. - Substance & Tx. History. Hx Alcohol Use: Yes. Hx Substance Use : Yes. Substance Use Type: Cocaine, Heroin, Marijuana. Hx Substance Use Treatment: Yes ([facility] detox 05/20/16 -05/25/16). - Substances Abused. Heroin. Route: Inhalation. Frequency: Daily. Amount used: 13 bags. Age of first use: 26. Date of Last Use: 01/28/18. Alcohol-vodka. Route: Oral. Frequency: 3- 6 times per week. Amount used: 1 pt. Age of first use: 19. Date of Last Use: 01/28/18. Xanax. Route: Oral. Frequency: Daily. Amount used: 4 mg. Age of first use: 54. Date of Last Use: 01/28/18 Medical History: GERD Psychiatric History: Patient denies h/o psychiatric hospitalization, outpatient care, and suicide attempt. Physical/Sexual Abuse/Trauma History: denies. Mental Status Exam - Mental Status Exam Alert and Oriented to: Time, Place, Person Cognitive Function: Good Patient Appearance: Well Groomed Mood: Euthymic Affect: Mood Congruent Patient Behavior: Fatigued, Cooperative Speech Pattern: Appropriate Voice Loudness: Moderately Soft/Quiet Thought Process: Intact, Goal Oriented Thought Disorder: Not Present Hallucinations: Denies Suicidal Ideation: Denies Homicidal Ideation: Denies Insight/Judgement: Poor Sleep: Poorly Appetite: Fair Muscle strength/Tone: Normal Gait/Station: Normal Psychiatric Findings - Problem List ([place] 1, 2,3) (1) Sedative hypnotic or anxiolytic dependence Current Visit: Yes Status: Acute (2) Alcohol dependence with uncomplicated withdrawal Current Visit: Yes Status: Acute (3) Cannabis dependence, uncomplicated Current Visit: Yes Status: Acute (4) Nicotine dependence Current Visit: Yes Status: Acute Qualifiers: Nicotine product type: cigarettes Substance use status: in withdrawal Qualified Code(s): F17.213 - Nicotine dependence, cigarettes, with withdrawal (5) Opioid dependence with withdrawal Current Visit: Yes Status: Acute (6) Substance-induced sleep disorder Current Visit: Yes Status: Acute - Initial Treatment Plan Initial Treatment Plan: Psychoeducation provided. Detoxification in progress. Patient made aware that melatonin 5mg is ordered for insomnia. Observation.
[2018-01-30] MEDS ORDERED: METHADONE HCL 10 MG TABLET (FOR DETOX USE ONLY) PO SCH (10:00)
[2018-01-30 10:16] LABS: HEMATOCRIT 40.4 % (35.4-49); HEMOGLOBIN 13.1 GM/dL (11.7-16.9); MCHC 32.4 g/dl (32.0-35.9); MEAN CELL VOLUME 80.1 fl (80-96); PLATELET COUNT 193 K/MM3 (134-434); RBC 5.05 M/mm3 (4.00-5.60); WHITE BLOOD COUNT 6.1 K/mm3 (4.0-10.0)
[2018-01-30] MEDS: PRENATAL VITAMINS W/ FOLIC ACID TABLET (FP) PO SCH (10:17)
[2018-01-30] MEDS: NICOTINE 14 MG/24 HOURS TOPICAL PATCH TD SCH (10:17)
[2018-01-30 10:37] LABS: ALK PHOS 117 U/L (45-117); ANION GAP 9 MMOL/L (8-16); BILIRUBIN,TOTAL 0.7 mg/dL (0.2-1); BLOOD UREA NITROGEN 12 mg/dL (7-18); CALCIUM 9.3 mg/dL (8.5-10.1); CHLORIDE 103 mmol/L (98-107); CO2 29 mmol/L (21-32); CREATININE 0.9 mg/dL (0.55-1.3); GLUCOSE,RANDOM 118 mg/dL (74-106); POTASSIUM 4.7 mmol/L (3.5-5.1); SGOT/AST 18 U/L (15-37); SGPT/ALT 22 U/L (13-61); SODIUM 141 mmol/L (136-145); TOT PROT 7.7 g/dl (6.4-8.2)
--- NOTE | 2018-01-30 12:36 | PN ---
[facility] CIWA - CIWA Score Nausea/Vomitin-Mild Nausea/No Vomiting Muscle Tremors: 2 Anxiety: 2 Agitation: 2 Paroxysmal Sweats: 1-Minimal Palms Moist Orientation: 1-Uncertain about Date Tacttile Disturbances: 1-Very Mild Itch/Numbness Auditory Disturbances: 1-Very Mild Visual Disturbances: 0-None Headache: 1-Very Mild CIWA-Ar Total Score: 12 [facility] COWS - Scale Resting Pulse: 0= [place] 80 or Below Sweatin= Chills/Flushing Restless Observation: 1= Difficult to Sit Still Pupil Size: 0= Normal to Room Light Bone or Joint Aches: 1= Mild Discomfort Runny Nose/ Eye Tearin= Nasal Congestion GI Upset > 30mins: 2= Nausea/Diarrhea Tremor Observation of Outstretched Hands: 2= Slight Tremor Visible Yawning Observation: 2= >3x During Session Anxiety or Irritability: 2=Irritable/Anxious Goose Flesh Skin: 0=Smooth Skin COWS Score: 12 S Progress Note (SOAP) Subjective: body ache trouble sleep at night restlessness anxiety Objective: 01/30/18 12:35 Vital Signs Temperature 97.9 F 01/30/18 08:53 Pulse Rate 59 L 01/30/18 08:53 Respiratory Rate 18 01/30/18 08:53 Blood Pressure 148/72 01/30/18 08:53 O2 Sat by Pulse Oximetry (%) Laboratory Last Values WBC 6.1 K/mm3 (4.0-10.0) 01/30/18 06:00 RBC 5.05 M/mm3 (4.00-5.60) 01/30/18 06:00 Hgb 13.1 GM/dL (11.7-16.9) 01/30/18 06:00 Hct 40.4 % (35.4-49) 01/30/18 06:00 MCV 80.1 fl (80-96) 01/30/18 06:00 MCH 26.0 pg (25.7-33.7) 01/30/18 06:00 MCHC 32.4 g/dl (32.0-35.9) 01/30/18 06:00 RDW 15.0 % (11.9-15.9) 01/30/18 06:00 Plt Count 193 K/MM3 (134-434) 01/30/18 06:00 MPV 9.0 fl (7.5-11.1) 01/30/18 06:00 Sodium 141 mmol/L (136-145) 01/30/18 06:00 Potassium 4.7 mmol/L (3.5-5.1) 01/30/18 06:00 Chloride 103 mmol/L (98-107) 01/30/18 06:00 Carbon Dioxide 29 mmol/L (21-32) 01/30/18 06:00 Anion Gap 9 MMOL/L (8-16) 01/30/18 06:00 BUN 12 mg/dL (7-18) 01/30/18 06:00 Creatinine 0.9 mg/dL (0.55-1.3) 01/30/18 06:00 Creat Clearance w eGFR > 60 (>60) 01/30/18 06:00 Random Glucose 118 mg/dL (74-106) H 01/30/18 06:00 Calcium 9.3 mg/dL (8.5-10.1) 01/30/18 06:00 Total Bilirubin 0.7 mg/dL (0.2-1) 01/30/18 06:00 AST 18 U/L (15-37) 01/30/18 06:00 ALT 22 U/L (13-61) 01/30/18 06:00 Alkaline Phosphatase 117 U/L (45-117) 01/30/18 06:00 Total Protein 7.7 g/dl (6.4-8.2) 01/30/18 06:00 Albumin 4.0 g/dl (3.4-5.0) 01/30/18 06:00 Urine Color Dkyellow 01/29/18 20:48 Urine Appearance Clear 01/29/18 20:48 Urine pH 6.0 (5.0-8.0) 01/29/18 20:48 Ur Specific [place] 1.024 (1.010-1.035) 01/29/18 20:48 Urine Protein Negative (NEGATIVE) 01/29/18 20:48 Urine Glucose (UA) Negative (NEGATIVE) 01/29/18 20:48 Urine Ketones Negative (NEGATIVE) 01/29/18 20:48 Urine Blood 1+ (NEGATIVE) H 01/29/18 20:48 Urine Nitrite Negative (NEGATIVE) 01/29/18 20:48 Urine Bilirubin Negative (<2.0 mg/dL) 01/29/18 20:48 Urine Urobilinogen 4.0 e.u/dl mg/dL (0.2-1.0) 01/29/18 20:48 Ur Leukocyte Esterase Negative (NEGATIVE) 01/29/18 20:48 Urine WBC (Auto) <1 /hpf (3-5) 01/29/18 20:48 Urine RBC (Auto) 23 /hpf (0-3) 01/29/18 20:48 Ur Epithelial Cells Rare /HPF (FEW) 01/29/18 20:48 Urine Mucus Rare 01/29/18 20:48 RPR Titer Nonreactive (NONREACTIVE) 01/30/18 06:00 HIV 1&2 Antibody Screen Negative 01/29/18 15:15 HIV P24 Antigen Negative 01/29/18 15:15 lab noted Assessment: 01/30/18 12:35 withdrawal sx Plan: continue detox
--- NOTE | 2018-01-30 13:16 | EKG ---
Test Reason : Blood Pressure : / mmHG Vent. Rate : 048 BPM Atrial Rate : 048 BPM P-R Int : 186 ms QRS Dur : 104 ms QT Int : 444 ms P-R-T Axes : 073 083 075 degrees QTc Int : 396 ms SINUS BRADYCARDIA NONSPECIFIC T WAVE ABNORMALITY ABNORMAL ECG WHEN COMPARED WITH ECG OF 29-JAN-2018 17:07, NO SIGNIFICANT CHANGE WAS FOUND Confirmed by MD DRU, ARA ([id number]) on 01/30/2018 1:16:04 PM Referred By: Confirmed By:ARA GONSALES MD
--- NOTE | 2018-01-30 13:18 | EKG ---
Test Reason : Blood Pressure : / mmHG Vent. Rate : 066 BPM Atrial Rate : 066 BPM P-R Int : 162 ms QRS Dur : 110 ms QT Int : 426 ms P-R-T Axes : 079 072 059 degrees QTc Int : 446 ms NORMAL SINUS RHYTHM MINIMAL VOLTAGE CRITERIA FOR LVH, MAY BE NORMAL VARIANT T WAVE ABNORMALITY, CONSIDER ANTERIOR ISCHEMIA ABNORMAL ECG WHEN COMPARED WITH ECG OF 20-MAY-2016 21:15, NO SIGNIFICANT CHANGE WAS FOUND Confirmed by MD DRU, ARA ([id number]) on 01/30/2018 1:17:52 PM Referred By: Confirmed By:ARA GONSALES MD
[2018-01-30] MEDS: THIAMINE HCL 100 MG TABLET (FP) PO SCH (22:25)
[2018-01-31] MEDS: NICOTINE 14 MG/24 HOURS TOPICAL PATCH TD SCH (10:17)
[2018-01-31] MEDS: METHADONE HCL 5 MG TABLET (FOR DETOX USE ONLY) PO SCH (10:17)
[2018-01-31] MEDS: PRENATAL VITAMINS W/ FOLIC ACID TABLET (FP) PO SCH (10:17)
[2018-01-31] MEDS: diazePAM 5 MG TABLET PO SCH ×2 (10:17→23:41)
[2018-01-31] MEDS: METOPROLOL TARTRATE 25 MG TABLET (FP) PO SCH ×2 (10:18→23:41)
--- NOTE | 2018-01-31 12:07 | PN ---
[facility] CIWA - CIWA Score Nausea/Vomitin-No Nausea/No Vomiting Muscle Tremors: 3 Anxiety: 2 Agitation: 3 Paroxysmal Sweats: 1-Minimal Palms Moist Orientation: 0-Oriented Tacttile Disturbances: 1-Very Mild Itch/Numbness Auditory Disturbances: 0-None Visual Disturbances: 0-None Headache: 1-Very Mild CIWA-Ar Total Score: 11 BHS COWS - Scale Resting Pulse: 0= [place] 80 or Below Sweatin= Chills/Flushing Restless Observation: 1= Difficult to Sit Still Pupil Size: 0= Normal to Room Light Bone or Joint Aches: 1= Mild Discomfort Runny Nose/ Eye Tearin= Nasal Congestion GI Upset > 30mins: 1= Stomach Cramp Tremor Observation of Outstretched Hands: 2= Slight Tremor Visible Yawning Observation: 1= 1-2x During Session Anxiety or Irritability: 1=Feels Anxious/Irritable Goose Flesh Skin: 0=Smooth Skin COWS Score: 9 [facility] Progress Note (SOAP) Subjective: headache joint pain muscle aches tremor sweat Objective: 01/31/18 12:06 Vital Signs Temperature 98.1 F 01/31/18 10:05 Pulse Rate 46 L 01/31/18 10:05 Respiratory Rate 16 01/31/18 10:05 Blood Pressure 172/87 H 01/31/18 10:05 O2 Sat by Pulse Oximetry (%) Laboratory Last Values WBC 6.1 K/mm3 (4.0-10.0) 01/30/18 06:00 RBC 5.05 M/mm3 (4.00-5.60) 01/30/18 06:00 Hgb 13.1 GM/dL (11.7-16.9) 01/30/18 06:00 Hct 40.4 % (35.4-49) 01/30/18 06:00 MCV 80.1 fl (80-96) 01/30/18 06:00 MCH 26.0 pg (25.7-33.7) 01/30/18 06:00 MCHC 32.4 g/dl (32.0-35.9) 01/30/18 06:00 RDW 15.0 % (11.9-15.9) 01/30/18 06:00 Plt Count 193 K/MM3 (134-434) 01/30/18 06:00 MPV 9.0 fl (7.5-11.1) 01/30/18 06:00 Sodium 141 mmol/L (136-145) 01/30/18 06:00 Potassium 4.7 mmol/L (3.5-5.1) 01/30/18 06:00 Chloride 103 mmol/L (98-107) 01/30/18 06:00 Carbon Dioxide 29 mmol/L (21-32) 01/30/18 06:00 Anion Gap 9 MMOL/L (8-16) 01/30/18 06:00 BUN 12 mg/dL (7-18) 01/30/18 06:00 Creatinine 0.9 mg/dL (0.55-1.3) 01/30/18 06:00 Creat Clearance w eGFR > 60 (>60) 01/30/18 06:00 Random Glucose 118 mg/dL (74-106) H 01/30/18 06:00 Calcium 9.3 mg/dL (8.5-10.1) 01/30/18 06:00 Total Bilirubin 0.7 mg/dL (0.2-1) 01/30/18 06:00 AST 18 U/L (15-37) 01/30/18 06:00 ALT 22 U/L (13-61) 01/30/18 06:00 Alkaline Phosphatase 117 U/L (45-117) 01/30/18 06:00 Total Protein 7.7 g/dl (6.4-8.2) 01/30/18 06:00 Albumin 4.0 g/dl (3.4-5.0) 01/30/18 06:00 Urine Color Dkyellow 01/29/18 20:48 Urine Appearance Clear 01/29/18 20:48 Urine pH 6.0 (5.0-8.0) 01/29/18 20:48 Ur Specific [place] 1.024 (1.010-1.035) 01/29/18 20:48 Urine Protein Negative (NEGATIVE) 01/29/18 20:48 Urine Glucose (UA) Negative (NEGATIVE) 01/29/18 20:48 Urine Ketones Negative (NEGATIVE) 01/29/18 20:48 Urine Blood 1+ (NEGATIVE) H 01/29/18 20:48 Urine Nitrite Negative (NEGATIVE) 01/29/18 20:48 Urine Bilirubin Negative (<2.0 mg/dL) 01/29/18 20:48 Urine Urobilinogen 4.0 e.u/dl mg/dL (0.2-1.0) 01/29/18 20:48 Ur Leukocyte Esterase Negative (NEGATIVE) 01/29/18 20:48 Urine WBC (Auto) <1 /hpf (3-5) 01/29/18 20:48 Urine RBC (Auto) 23 /hpf (0-3) 01/29/18 20:48 Ur Epithelial Cells Rare /HPF (FEW) 01/29/18 20:48 Urine Mucus Rare 01/29/18 20:48 RPR Titer Nonreactive (NONREACTIVE) 01/30/18 06:00 HIV 1&2 Antibody Screen Negative 01/29/18 15:15 HIV P24 Antigen Negative 01/29/18 15:15 lab noted begin metoprolol 01/31/18 12:08 Assessment: 01/31/18 12:07 withdrawal sx hypertension Plan: continue detox metoprolol a5 mg po bid
[2018-01-31] MEDS: diazePAM 5 MG TABLET PO PRN (16:46)
[2018-01-31] MEDS: NICOTINE POLACRILEX 2 MG GUM BC PRN (16:47)
[2018-01-31] MEDS: THIAMINE HCL 100 MG TABLET (FP) PO SCH (23:40)
[2018-01-31] MEDS: MELATONIN 5 MG TABLETS PO PRN (23:41)
--- NOTE | 2018-02-01 10:11 | PN ---
[facility] Progress Note (SOAP) Subjective: sweat tremor muscle cramping back pain trouble sleep at night Objective: 02/01/18 10:03 Vital Signs Temperature 97.2 F L 02/01/18 09:27 Pulse Rate 51 L 02/01/18 09:27 Respiratory Rate 18 02/01/18 09:27 Blood Pressure 135/90 02/01/18 09:27 O2 Sat by Pulse Oximetry (%) Laboratory Last Values WBC 6.1 K/mm3 (4.0-10.0) 01/30/18 06:00 RBC 5.05 M/mm3 (4.00-5.60) 01/30/18 06:00 Hgb 13.1 GM/dL (11.7-16.9) 01/30/18 06:00 Hct 40.4 % (35.4-49) 01/30/18 06:00 MCV 80.1 fl (80-96) 01/30/18 06:00 MCH 26.0 pg (25.7-33.7) 01/30/18 06:00 MCHC 32.4 g/dl (32.0-35.9) 01/30/18 06:00 RDW 15.0 % (11.9-15.9) 01/30/18 06:00 Plt Count 193 K/MM3 (134-434) 01/30/18 06:00 MPV 9.0 fl (7.5-11.1) 01/30/18 06:00 Sodium 141 mmol/L (136-145) 01/30/18 06:00 Potassium 4.7 mmol/L (3.5-5.1) 01/30/18 06:00 Chloride 103 mmol/L (98-107) 01/30/18 06:00 Carbon Dioxide 29 mmol/L (21-32) 01/30/18 06:00 Anion Gap 9 MMOL/L (8-16) 01/30/18 06:00 BUN 12 mg/dL (7-18) 01/30/18 06:00 Creatinine 0.9 mg/dL (0.55-1.3) 01/30/18 06:00 Creat Clearance w eGFR > 60 (>60) 01/30/18 06:00 Random Glucose 118 mg/dL (74-106) H 01/30/18 06:00 Calcium 9.3 mg/dL (8.5-10.1) 01/30/18 06:00 Total Bilirubin 0.7 mg/dL (0.2-1) 01/30/18 06:00 AST 18 U/L (15-37) 01/30/18 06:00 ALT 22 U/L (13-61) 01/30/18 06:00 Alkaline Phosphatase 117 U/L (45-117) 01/30/18 06:00 Total Protein 7.7 g/dl (6.4-8.2) 01/30/18 06:00 Albumin 4.0 g/dl (3.4-5.0) 01/30/18 06:00 Urine Color Dkyellow 01/29/18 20:48 Urine Appearance Clear 01/29/18 20:48 Urine pH 6.0 (5.0-8.0) 01/29/18 20:48 Ur Specific [place] 1.024 (1.010-1.035) 01/29/18 20:48 Urine Protein Negative (NEGATIVE) 01/29/18 20:48 Urine Glucose (UA) Negative (NEGATIVE) 01/29/18 20:48 Urine Ketones Negative (NEGATIVE) 01/29/18 20:48 Urine Blood 1+ (NEGATIVE) H 01/29/18 20:48 Urine Nitrite Negative (NEGATIVE) 01/29/18 20:48 Urine Bilirubin Negative (<2.0 mg/dL) 01/29/18 20:48 Urine Urobilinogen 4.0 e.u/dl mg/dL (0.2-1.0) 01/29/18 20:48 Ur Leukocyte Esterase Negative (NEGATIVE) 01/29/18 20:48 Urine WBC (Auto) <1 /hpf (3-5) 01/29/18 20:48 Urine RBC (Auto) 23 /hpf (0-3) 01/29/18 20:48 Ur Epithelial Cells Rare /HPF (FEW) 01/29/18 20:48 Urine Mucus Rare 01/29/18 20:48 RPR Titer Nonreactive (NONREACTIVE) 01/30/18 06:00 HIV 1&2 Antibody Screen Negative 01/29/18 15:15 HIV P24 Antigen Negative 01/29/18 15:15 lab noted Assessment: 02/01/18 10:11 withdrawal sx Plan: continue detox
[2018-02-01] MEDS: METOPROLOL TARTRATE 25 MG TABLET (FP) PO SCH ×2 (10:52→22:27)
[2018-02-01] MEDS: diazePAM 5 MG TABLET PO SCH ×2 (10:52→22:28)
[2018-02-01] MEDS: METHADONE HCL 5 MG TABLET (FOR DETOX USE ONLY) PO SCH (10:52)
[2018-02-01] MEDS: PRENATAL VITAMINS W/ FOLIC ACID TABLET (FP) PO SCH (10:52)
[2018-02-01] MEDS: NICOTINE 14 MG/24 HOURS TOPICAL PATCH TD SCH (10:54)
[2018-02-01] MEDS ORDERED: BACLOFEN 10 MG TABLET (FP) PO ONE (11:15)
[2018-02-01] MEDS: LIDOCAINE 5% TOPICAL PATCH TP SCH (12:35)
[2018-02-01] MEDS: diazePAM 5 MG TABLET PO PRN (14:46)
[2018-02-01] MEDS: THIAMINE HCL 100 MG TABLET (FP) PO SCH (22:27)
[2018-02-01] MEDS: LIDOCAINE PATCH REMOVAL MC SCH (22:27)
[2018-02-01] MEDS: MELATONIN 5 MG TABLETS PO PRN (22:28)
[2018-02-02] MEDS ORDERED: diazePAM 5 MG TABLET PO SCH (10:00)
[2018-02-02] MEDS ORDERED: METHADONE HCL 10 MG TABLET (FOR DETOX USE ONLY) PO SCH (10:00)
[2018-02-02] MEDS: LIDOCAINE 5% TOPICAL PATCH TP SCH (10:22)
[2018-02-02] MEDS: PRENATAL VITAMINS W/ FOLIC ACID TABLET (FP) PO SCH (10:22)
[2018-02-02] MEDS: METOPROLOL TARTRATE 25 MG TABLET (FP) PO SCH ×2 (10:23→22:26)
[2018-02-02] MEDS: NICOTINE 14 MG/24 HOURS TOPICAL PATCH TD SCH (10:23)
[2018-02-02] MEDS ORDERED: diazePAM 5 MG TABLET PO ONE (22:00)
[2018-02-02] MEDS: THIAMINE HCL 100 MG TABLET (FP) PO SCH (22:26)
[2018-02-02] MEDS: MELATONIN 5 MG TABLETS PO PRN (22:27)
[2018-02-02] MEDS: LIDOCAINE PATCH REMOVAL MC SCH (23:04)
--- NOTE | 2018-02-02 23:22 | PN ---
[facility] Progress Note Note: C/o increased anxiety, pacing floors, and c/o inability to sleep. Will give Valium 10 mg x once.
[2018-02-03] MEDS ORDERED: METHADONE HCL 5 MG TABLET (FOR DETOX USE ONLY) PO SCH (06:00)
[2018-02-03 09:39] VITALS: BP 139/77; PULSE 60; TEMP 98.4
--- NOTE | 2018-02-03 12:22 | PN ---
S Progress Note (SOAP) Subjective: No new complaints Objective: 02/03/18 12:22 A & O x 3 In no acute distress Assessment: 02/03/18 12:22 Completed detox Plan: for d/c
--- NOTE | 2018-02-03 12:27 | DS ---
[facility] Detox Discharge Summary Admission Date: 01/29/18 Discharge Date: 02/03/18 - History Additional Comments: Pt for discharge Going home but will return on Tu for Rehab States he has to go take care of business at home States he does not need prescriptions - Physical Exam Results Vital Signs: Vital Signs Temperature 98.4 F 02/03/18 09:38 Pulse Rate 60 02/03/18 09:38 Respiratory Rate 18 02/03/18 09:38 Blood Pressure 139/77 02/03/18 09:38 O2 Sat by Pulse Oximetry (%) Pertinent Admission Physical Exam Findings: withdrawal sx - Treatment Hospital Course: Detox Protocol Followed, Detoxed Safely, Responded well, Discharged Condition Good - Medication Discharge Medications: Ambulatory Orders Metoprolol Tartrate 25 mg PO BID 01/31/18 - Diagnosis (1) Alcohol dependence with uncomplicated withdrawal Current Visit: Yes Status: Acute (2) Cannabis dependence, uncomplicated Current Visit: Yes Status: Chronic (3) Nicotine dependence Current Visit: Yes Status: Chronic Qualifiers: Nicotine product type: cigarettes Substance use status: in withdrawal Qualified Code(s): F17.213 - Nicotine dependence, cigarettes, with withdrawal (4) Opioid dependence with withdrawal Current Visit: Yes Status: Acute (5) Sedative, hypnotic or anxiolytic dependence with withdrawal, uncomplicated Current Visit: Yes Status: Acute (6) Substance-induced sleep disorder Current Visit: Yes Status: Chronic (7) Weight loss Current Visit: Yes Status: Acute (8) GERD (gastroesophageal reflux disease) Current Visit: Yes Status: Chronic Qualifiers: Esophagitis presence: without esophagitis Qualified Code(s): K21.9 - Gastro -esophageal reflux disease without esophagitis - AMA Did Patient Leave Against Medical Advice: No
== END 2018-02-03 09:25 | disposition home or self-care (01) | DRG 773 ==
LOC: YASAS 11:03 → Y6N 16:15
PROC: HZ2ZZZZ Detoxification Services for Substance Abuse Treatment (ICD-10-PCS; principal; 2018-01-29)
DX: F11.23 Opioid dependence with withdrawal (principal); F10.230 Alcohol dependence with withdrawal, uncomplicated; F13.230 Sedative, hypnotic or anxiolytic dependence with withdrawal, uncomplicated; F12.20 Cannabis dependence, uncomplicated; F17.213 Nicotine dependence, cigarettes, with withdrawal; F19.282 Other psychoactive substance dependence with psychoactive substance-induced sleep disorder; K21.9 Gastro-esophageal reflux disease without esophagitis; R03.0 Elevated blood-pressure reading, without diagnosis of hypertension; R63.4 Abnormal weight loss; Z68.1 Body mass index [BMI] 19.9 or less, adult
CPT/HCPCS: 36415; 80053; 81003; 81015; 85027; 86593; 87389; 93005; 93010; J0475